=== PATIENT | female | born 1975 | race African-American/Black ===

== ENCOUNTER 2017-12-20 13:56 | Emergency (ER) | payer SELFPAY ==
[~2017-12-20] VITALS: Ht 177.8 cm; Wt 90.7 kg
[2017-12-20 14:36] VITALS: BP 149/92
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
[2017-12-20] MEDS ORDERED: ROBAXIN500 MG PO (15:27)
[2017-12-20] MEDS ORDERED: IBUPROFEN600 MG ORAL (15:27)
[2017-12-20] MEDS ORDERED: SOMA250 MG PO (15:27)
[2017-12-20] MEDS ORDERED: LIDODERM700 M1 TOPIC (15:27)
[2017-12-20 16:14] VITALS: BP 149/92
== END 2017-12-20 16:14 | disposition home or self-care (01) ==
LOC: EDSEX 13:56 → EMR 15:01
DX: S16.1XXA Strain of muscle, fascia and tendon at neck level, initial encounter (principal); V43.62XA Car passenger injured in collision with other type car in traffic accident, initial encounter; Y92.410 Unspecified street and highway as the place of occurrence of the external cause; M62.838 Other muscle spasm
CPT/HCPCS: 99283